=== PATIENT | male | born 1975 | race Two or more races ===

== ENCOUNTER 2025-06-25 10:05 | Emergency (ER) | payer SELFPAY | END 2025-06-25 11:00 | disposition home or self-care (01) | LOC: MW.ED 10:05 | DX: B02.9 Zoster without complications (principal); I10 Essential (primary) hypertension; E11.9 Type 2 diabetes mellitus without complications; E78.00 Pure hypercholesterolemia, unspecified; Z75.3 Unavailability and inaccessibility of health-care facilities; Z79.899 Other long term (current) drug therapy | CPT/HCPCS: 99282 ==